=== PATIENT | male | born 1950 | race Caucasian/White ===

== ENCOUNTER → 2018-09-08 | Outpatient (CLI) | payer OTHER, MEDICARE | END | disposition home or self-care (01) | LOC: LAB SHORT 08:24 → PLD 08:24 | DX: C44.612 Basal cell carcinoma of skin of right upper limb, including shoulder (principal) | CPT/HCPCS: 88305 ==

== ENCOUNTER → 2018-11-30 | Outpatient (CLI) | payer OTHER, MEDICARE | LOC: LAB SHORT 13:33 → PLD 13:33 | DX: L57.0 Actinic keratosis (principal) | CPT/HCPCS: 88305 ==

== ENCOUNTER → 2021-10-21 | Outpatient (CLI) | payer OTHER, MEDICARE | END | disposition home or self-care (01) | LOC: PLD 12:18 → LAB SHORT 12:18 | DX: C44.622 Squamous cell carcinoma of skin of right upper limb, including shoulder (principal); D04.61 Carcinoma in situ of skin of right upper limb, including shoulder; L57.0 Actinic keratosis | CPT/HCPCS: 88305 ==

== ENCOUNTER → 2021-11-16 | Outpatient (CLI) | payer OTHER, MEDICARE | END | disposition home or self-care (01) | LOC: PLD 14:43 → LAB SHORT 14:43 | DX: C44.622 Squamous cell carcinoma of skin of right upper limb, including shoulder (principal); L57.0 Actinic keratosis; L57.8 Other skin changes due to chronic exposure to nonionizing radiation | CPT/HCPCS: 88305 ==

== ENCOUNTER → 2021-12-06 | Outpatient (CLI) | payer OTHER, MEDICARE ==
[2021-12-06 13:28] LABS: BASOPHILS ABSOLUTE AUTO 0.03 K/mm3 (0.00-0.23); BASOPHILS PERCENT AUTO 1 % (0-2); EOSINOPHILS ABSOLUTE AUTO 0.14 K/mm3 (0.00-0.68); EOSINOPHILS PERCENT AUTO 2 % (0-6); Hematocrit 46.5 % (37.0-53.0); Hemoglobin 16.3 g/dL (13.5-17.5); IMMATURE GRAN ABSOLUTE AUTO 0.03 K/mm3 (0.00-0.10); IMMATURE GRAN PERCENT AUTO 1 % (0-1); LYMPHOCYTES ABSOLUTE AUTO 1.34 K/mm3 (0.84-5.20); LYMPHOCYTES PERCENT AUTO 21 % (21-46); MONOCYTES ABSOLUTE AUTO 1.14 K/mm3 (0.16-1.47); MONOCYTES PERCENT AUTO 18 % (4-13); Mean Corpuscular HGB 32.5 pg (26.0-34.0); Mean Corpuscular HGB Conc 35.1 g/dL (31.5-36.5); Mean Corpuscular Volume 93 fL (80-100); Mean Platelet Volume 9.5 fL (9.1-12.4); NEUTROPHILS ABSOLUTE AUTO 3.74 K/mm3 (1.96-9.15); NEUTROPHILS PERCENT AUTO 58 % (41-73); Platelet Count 314 K/mm3 (150-400); RDW Coefficient Variation 11.9 % (11.7-14.2); RDW Standard Deviation 40.2 fL (35.1-46.3); Red Blood Cell Count 5.02 M/mm3 (4.30-5.90); White Blood Cell Count 6.42 K/mm3 (4.00-11.30)
[2021-12-06 13:32] LABS: Bun/Creatinine Ratio 16.3 (12.0-20.0); Calcium, Blood 9.5 mg/dL (8.5-10.1); Creatinine, Blood 1.96 mg/dL (0.60-1.20); Potassium, Blood 4.5 mmol/L (3.5-5.5)
== END | disposition home or self-care (01) ==
LOC: LAB SHORT 13:23 → LAB 13:23
PROVIDERS: Physician Assistant Surgical
DX: R42 Dizziness and giddiness (principal)
CPT/HCPCS: 80048; 85025

== ENCOUNTER → 2022-01-07 | Outpatient (CLI) | payer OTHER, MEDICARE | END | disposition home or self-care (01) | LOC: LAB 15:01 → LAB SHORT 15:01 | DX: D48.5 Neoplasm of uncertain behavior of skin (principal) | CPT/HCPCS: 88305; 88312 ==

== ENCOUNTER 2022-02-25 11:02 | Day surgery (SDC) | payer OTHER, MEDICARE ==
[~2022-02-25] VITALS: Ht 185.4 cm; Wt 96.3 kg
[2022-02-25] MEDS ORDERED: CELE100 (12:00)
[2022-02-25] MEDS ORDERED: METO25 (12:00)
[2022-02-25] MEDS ORDERED: RAMI2.5 (12:01)
[2022-02-25] MEDS ORDERED: TRIA50 (12:01)
[2022-02-25] MEDS ORDERED: HYDCHL25 (12:01)
[2022-02-25] MEDS ORDERED: 1/2 NS 250ml250 ML (12:02)
--- NOTE | 2022-02-25 12:15 | NUR ---
02/25/22 1215 Che Gary T:1145 P:1145
== END 2022-02-25 13:50 | disposition home or self-care (01) ==
LOC: ORSCSDS 11:02
PROVIDERS: Ophthalmology
PROC: 08RK3JZ Replacement of Left Lens with Synthetic Substitute, Percutaneous Approach (ICD-10-PCS; principal; 2022-02-25 12:30)
DX: H25.12 Age-related nuclear cataract, left eye (principal); I10 Essential (primary) hypertension; Z79.899 Other long term (current) drug therapy; Z86.718 Personal history of other venous thrombosis and embolism
CPT/HCPCS: J2001; J2250; J3010; J3301; J7040; V2632

== ENCOUNTER → 2023-04-19 | Outpatient (CLI) | payer OTHER, MEDICARE ==
[~2023-04-19] MED LIST: 1/2 NS 250ml250 ML; CELE100; HYDCHL25; METO25; RAMI2.5; TRIA50
== END ==
LOC: LAB SHORT 14:23 → LAB 14:23
DX: C44.629 Squamous cell carcinoma of skin of left upper limb, including shoulder (principal)
CPT/HCPCS: 88305

== ENCOUNTER → 2023-05-03 | Outpatient (CLI) | payer OTHER, MEDICARE | END | disposition home or self-care (01) | LOC: LAB SHORT 12:48 → LAB 12:48 | DX: D48.5 Neoplasm of uncertain behavior of skin (principal) | CPT/HCPCS: 88305 ==

== ENCOUNTER → 2023-08-25 | Outpatient (CLI) | payer OTHER, MEDICARE | LOC: LAB SHORT 12:27 → LAB 12:27 | DX: L72.8 Other follicular cysts of the skin and subcutaneous tissue (principal); L08.89 Other specified local infections of the skin and subcutaneous tissue | CPT/HCPCS: 88305 ==

== ENCOUNTER 2024-09-17 11:52 | Observation (INO) | payer OTHER ==
[~2024-09-17] VITALS: Ht 185.4 cm; Wt 82.2 kg
[~2024-09-17 11:52] MED LIST changes: -HYDCHL25; +HYDCHL25 PO; -TRIA50; +TRIAMTERENE PO
[2024-09-17] MEDS ORDERED: ALBUTEROL SULFATE HF (12:08)
[2024-09-17 13:39] LABS: Anti-Xa UFH, PHA Monitoring <0.10 IU/mL; International Normalized Ratio 1.09; Prothrombin Time Results 11.6 Sec (9.7-11.5)
[2024-09-17] MEDS ORDERED: Dose Adjust by Pharmacy XX STA ×2 (14:01→21:26)
[2024-09-17] MEDS ORDERED: Heparin Sodium,Porcine/0.5 NS 500 ML IV SCH (14:05)
[2024-09-17] MEDS ORDERED: Heparin Sodium 5000 Units/ML 1ML MDV IV ONE (14:05)
[2024-09-17] MEDS ORDERED: Ramipril10 MG PO (15:53)
[2024-09-17] MEDS ORDERED: ATEN25 PO (15:55)
--- NOTE | 2024-09-17 16:00 | NUR ---
ASSUMPTION OF CARE PATIENT ARRIVED TO UNIT FROM ER VIA [facility]. PATIENT ABLE TO TRANSFER FROM [facility] TO BED WITH [facility]BA. VSS, PATIENT DENIES CHEST PAIN OR PRESSURE, REPORTS SHORTNESS OF BREATH UPON EXERTION. PATIENT HAS A LEFT AKA AND HAS A PROSTHETIC, PATIENT HAS CRUTCHES THAT ARE IN THE ROOM WITH PATIENT. IS AT BEDSIDE. HEPARIN DRIP INFUSING. PATIENT SITTING UP, BED IN LOWEST POSITION, CALL LIGHT WITHIN REACH.
[2024-09-17 17:50] VITALS: BP 124/74
--- NOTE | 2024-09-17 18:27 | NUR ---
SHIFT SUMMARY NO ACUTE CHANGES SINCE ASSUMPTION OF CARE.
[2024-09-17 20:09] VITALS: BP 119/89
[2024-09-18 00:45] VITALS: BP 127/82
[2024-09-18 04:35] VITALS: BP 112/73
[2024-09-18 04:35] LABS: BASOPHILS ABSOLUTE AUTO 0.09 K/mm3 (0.00-0.23); BASOPHILS PERCENT AUTO 1 % (0-2); EOSINOPHILS PERCENT AUTO 7 % (0-6); Hematocrit 43.5 % (37.0-53.0); IMMATURE GRAN ABSOLUTE AUTO 0.02 K/mm3 (0.00-0.10); IMMATURE GRAN PERCENT AUTO 0 % (0-1); LYMPHOCYTES ABSOLUTE AUTO 1.98 K/mm3 (0.84-5.20); LYMPHOCYTES PERCENT AUTO 28 % (21-46); MONOCYTES ABSOLUTE AUTO 0.85 K/mm3 (0.16-1.47); MONOCYTES PERCENT AUTO 12 % (4-13); Mean Corpuscular HGB 32.2 pg (26.0-34.0); Mean Corpuscular HGB Conc 34.5 g/dL (31.5-36.5); Mean Corpuscular Volume 93 fL (80-100); Mean Platelet Volume 9.4 fL (9.1-12.4); NEUTROPHILS ABSOLUTE AUTO 3.77 K/mm3 (1.96-9.15); NEUTROPHILS PERCENT AUTO 52 % (41-73); Platelet Count 297 K/mm3 (150-400); RDW Standard Deviation 41.7 fL (35.1-46.3); Red Blood Cell Count 4.66 M/mm3 (4.30-5.90); White Blood Cell Count 7.21 K/mm3 (4.00-11.30)
[2024-09-18 05:09] LABS: Bun/Creatinine Ratio 20.7 (12.0-20.0); Calcium, Blood 8.7 mg/dL (8.5-10.1); Creatinine, Blood 0.87 mg/dL (0.60-1.20); Potassium, Blood 4.4 mmol/L (3.5-5.5)
[2024-09-18] MEDS ORDERED: Dose Adjust by Pharmacy XX STA (05:29)
--- NOTE | 2024-09-18 06:52 | NUR ---
SHIFT SUMMARY: PT IS A&OX4, PLEASANT AND COOPERATIVE WITH CARE. VSS ON RA, SATS >93%. SB-SR WITH 1ST DEGREE BLOCK 50'S-60'S. HEPARIN GTT INFUSING AND TITRATED PER ORDER. C/O PAIN TO HIS SHOULDERS, BUT DENIED THE NEED FOR INTERVENTIONS. TOLERATING A HEART HEALTHY DIET. VOIDING INDEPENDENTLY IN URINAL AT BEDSIDE, ADEQUATE AMOUNTS OF CLEAR YELLOW URINE. NO BM THIS SHIFT. PT HAS NOT BEEN OOB THIS SHIFT, REPOSITIONS HIMSELF IN BED. BED IN LOWEST POSITION, CALL LIGHT WITHIN REACH.
[2024-09-18 07:52] VITALS: BP 145/86
[2024-09-18] MEDS ORDERED: Lisinopril 20 MG Tab PO SCH (09:30)
[2024-09-18] MEDS ORDERED: Apixaban 5 MG Tab PO SCH (09:30)
[2024-09-18] MEDS ORDERED: ELIQUIS5 M4 PO (12:16)
[2024-09-18] MEDS ORDERED: ELIQUIS5 M2 PO (12:17)
--- NOTE | 2024-09-18 13:05 | NUR ---
PT DISCHARGED TO HOME TODAY WITH DISCHARGE ORDERS. PT WAS BRIDGED TO [facility] TRAN THIS MORNING, PT WAS EDUCATED ABOUT THE MEDICATION. PT VERBALIZED UNDERSTANDING. VITALS HAS BEEN STABLE, PT HAS BEEN ON ROOMAIR, ABLE TO AMBULATE AROUND THE UNIT PT REPORTED SOME SOB BUT WAS IMPROVED FROM YESTERDAY. ALL NEW MEDICATIONS AND INSTRUCTIONS DISCLOSED WITH BOTH PT AND . PRESCRIPTIO SENT TO [facility]. ALL BELONGINGS SENT WITH THE PT. ACCOMPANIED VIA WHEELCHAIR FOR TRANSPORT
[2024-09-18 23:02] LABS: HOMOCYSTEINE, TOTAL 15 umol/L (0-15)
[2024-09-18 23:09] LABS: CARDIOLIPIN ANTIBODY IGG <10 GPL (<=14); CARDIOLIPIN ANTIBODY IGM <10 MPL (<=12)
[2024-09-19] MEDS ORDERED: Atenolol 25 MG Tab PO SCH (09:00)
[2024-09-19] MEDS ORDERED: Spironolactone 25 MG Tab PO SCH (09:00)
[2024-09-19 10:45] LABS: ANTI-XA QUALITATIVE INTERP Not Performed (Not Present); ANTICOAG MEDICATION NEUTRALIZ Not Performed (Not Performed); DRVVT 1:1 MIX RATIO Not Performed (<=1.20); DRVVT CONFIRMATION RATIO Not Performed (<=1.20); HEXAGONAL PHOSPHOLIPID CONFIRM Not Performed s (<=7.9); NEUTRALIZED DRVVT SCREEN RATIO Not Performed (<=1.20); NEUTRALIZED PTT-LA RATIO Not Performed (<=1.20); PROTHROMBIN TIME (PT) 14.6 s (12.0-15.5); PTT-LA RATIO 0.89 (<=1.20); THROMBIN TIME (TT) Not Performed s (<=19.5)
[2024-09-19 14:10] LABS: ANTITHROMBIN, ENZYM (ACTIVITY) 81 % (76-128)
[2024-09-19 16:29] LABS: B2GLYCOPROTEIN 1, IGG ANTIBODY <10 SGU (<=20); B2GLYCOPROTEIN 1, IGM ANTIBODY <10 SMU (<=20)
[2024-09-19 21:12] LABS: PROTEIN C FUNCTIONAL 121 % (83-168)
[2024-09-19 22:34] LABS: PROTEIN S AG FREE 114 % (74-147)
[2024-09-20 03:46] LABS: APC RESISTANCE 4.71 (>=2.00); FACTOR V LEIDEN BY PCR Not Done; FACV REF SPECIMEN Not Done
[2024-09-23 08:26] LABS: PROTHROMBIN F2 G20210A VARIANT Negative; PT PCR SPECIMEN Whole Blood
== END 2024-09-18 12:23 | disposition home or self-care (01) ==
LOC: ER 11:52 → PCU 11:53 → ER 13:55 → PCU 15:40
PROVIDERS: Emergency Medicine; Family Medicine; ADMIT Internal Medicine
DX: I26.99 Other pulmonary embolism without acute cor pulmonale (principal); E87.1 Hypo-osmolality and hyponatremia; F10.10 Alcohol abuse, uncomplicated; I10 Essential (primary) hypertension; Z79.01 Long term (current) use of anticoagulants; Z79.899 Other long term (current) drug therapy; Z89.612 Acquired absence of left leg above knee
CPT/HCPCS: 36415; 80048; 81240; 83090; 85025; 85300; 85303; 85306; 85307; 85520; 85610; 85613; 85730; 86146; 86147; 93005; 93010; 93306; 93971; 99285-25; A9270; J1644